=== PATIENT | male | born 1960 | race Caucasian/White ===

== ENCOUNTER → 2022-12-13 14:32 | Outpatient (CLI) | payer OTHER, SELFPAY ==
--- NOTE | 2022-12-13 14:34 | DI.RAD.S_ITS ---
PROCEDURE: XR KNEE RT 3V INDICATIONS: right knee pain TECHNIQUE: 3 views of the knee were acquired. COMPARISON: None. FINDINGS: Bones: No fractures or dislocations. Mild joint space narrowing at the medial compartment of the right knee. Small osteophytes. No suspicious bony lesions. Soft tissues: No significant joint effusion. No suspicious soft tissue calcifications. IMPRESSION: Mild right knee DJD. MRI could be considered for further evaluation Dictated by: David Bernal M.D. on 12/13/2022 at 16:13 Approved by: David Bernal M.D. on 12/13/2022 at 16:14
[2022-12-13 15:45] LABS: Hematocrit 40.8 % (41-53); Hemoglobin 13.6 g/dL (13.5-17.5); Mean Corpuscular HGB Conc 33.3 % (30-36); Mean Corpuscular Volume 93.2 fL (80-100); Platelet Count 249 X10^3/uL (150-400); Red Blood Cell Count 4.38 X10^6/uL (4.5-5.9); Red Cell Distribution Width 13.7 % (11.6-14.8); White Blood Cell Count 4.4 X10^3/uL (4.5-11.0)
[2022-12-13 15:51] LABS: Hemoglobin A1C% w Est Avg Glu 5.7 % (4.0-6.0)
[2022-12-13 16:07] LABS: Alanine Aminotransferase 100 IU/L (<50); Albumin 4.6 g/dL (3.5-5.0); Albumin Globulin Ratio 1.4 (1.0-2.8); Alkaline Phosphatase 67 U/L (38-126); Aspartate Aminotransferase 55 IU/L (17-59); BUN Creatinine Ratio 21.3 (6-22); Bilirubin Total 0.4 mg/dL (0.2-1.3); Blood Urea Nitrogen 19 mg/dL (9-20); Calcium 9.5 mg/dL (8.4-10.2); Carbon Dioxide 26 mmol/L (22-32); Chloride 104 mmol/L (98-107); Cholesterol 226 mg/dL (140-199); Estimated Glomerular Filt Rate > 60 mL/min (>60); Globulin 3.4 g/dL (1.7-4.1); Glucose 102 mg/dL (80-110); HDL Cholesterol 26 mg/dL (40-60); HEMOLYSIS < 15 (0-50); LDL Cholesterol Calculated 175 mg/dL (<100); Potassium 4.4 mmol/L (3.4-5.1); Sodium 141 mmol/L (137-145); Triglycerides 124 mg/dL (35-150)
[2022-12-13 16:34] LABS: TSH w/ Reflex to FT4 2.53 uIU/mL (0.47-4.68)
[2022-12-13 16:37] LABS: Prostate Specific Antigen 0.474 ng/mL (0.10-4.00)
[2022-12-17 11:36] LABS: Lamotrigine Lamictal 4.7 ug/mL (2.0-20.0)
== END ==
PROVIDERS: PCP Internal Medicine; Referring Provider Internal Medicine; Visit Provider Internal Medicine
DX: M17.11 Unilateral primary osteoarthritis, right knee (principal); M25.561 Pain in right knee; Z12.5 Encounter for screening for malignant neoplasm of prostate; E66.01 Morbid (severe) obesity due to excess calories; E78.2 Mixed hyperlipidemia; R73.01 Impaired fasting glucose; F31.81 Bipolar II disorder
CPT/HCPCS: 36415; 73562; 80053; 80061; 80175; 83036; 84153; 84443; 85027

== ENCOUNTER 2024-01-06 06:59 | Day surgery (SDC) | payer MEDICARE, OTHER, SELFPAY ==
--- NOTE | 2024-01-06 | PATH_ITS ---
[facility] Accession Number: [id number] No. of containers..02 Tissue . 01 Material submitted: . PART A: colon - DESCENDING POLYP PART B: colon - TRANSVERSE POLYP . 01 Diagnosis: A. DESCENDING COLON POLYP: Tubular adenoma. . B. TRANSVERSE COLON POLYP: Tubular adenoma. [facility] 01/13/2024 1149 Local . 01 Electronically signed: . Arik Ambrose MD, PhD, Pathologist NPI- [id number] . 01 Gross description: . Part A: DESCENDING POLYP: Received in formalin is 1 fragment(s) of liriano, soft tissue measuring 0.6 x 0.2 x 0.2 cm submitted entirely in 1 cassette(s) Part B: TRANSVERSE POLYP: Received in formalin is 1 fragment(s) of liriano, soft tissue measuring 0.6 x 0.4 x 0.4 cm submitted entirely in 1 cassette(s) /JAGUAR 01/08/2024 2048 Local . 01 Pathologist provided ICD-10: D12.4, D12.3 . 01 CPT . 174124, 611127 Specimen Comment: A courtesy copy of this report has been sent to [phone] Performed at: 01 [facility] [address] [place] [address], [place], [place] [id number] MD Idris Krishnan MD Phone: [phone]
[2024-01-06] MEDS: LACTATED RINGERS 1,000 ML 100 ML IV (07:26)
[2024-01-06 07:27] VITALS: BP 129/79; PULSE 93; RESP 16; TEMP 36.1; O2SAT 100
--- NOTE | 2024-01-06 07:42 | P.HP_ITS ---
History of Present Illness History of Present Illness Date Patient Seen: 01/06/24 Time Patient Seen: 07:42 Chief complaint: Colonoscopy Narrative: 63-year-old man personal history of colonic polyps here for screening colonoscopy. No acute abdominal concerns. No family history of intestinal malignancy. [facility] Medical History History of colonic polyps Obstructive sleep apnea Vision disorder Hearing loss Chronic back pain (~1999) Herpes (~1989) Tinnitus (~2019) Impaired fasting glucose Mixed hyperlipidemia Right knee pain Severe obesity (BMI 35.0-39.9) with comorbidity Chronic insomnia Bipolar 2 disorder (~1969) Surgical History Anesthesia History of right knee surgery (~2014) History of uvulectomy (~1995) Family History Mother History of bipolar disorder Mental health problem Sister History of bipolar disorder Mental health problem Obesity Social History details: , two sons, retired [employer], [place] Smoking Status: Never smoker alcohol intake: current Meds Home Medications and Allergies Home Medications Medication Instructions Recorded Confirmed Type eszopiclone 3 mg tablet (Lunesta) 3 mg PO DAILY Difficulty staying 10/28/23 01/06/24 Rx asleep #90 tabs lamotrigine 200 mg tablet 400 mg (2 x 200 mg) PO BID Bipolar 10/28/23 01/06/24 Rx (Lamictal) Disorder II #180 tabs rosuvastatin 10 mg tablet 10 mg PO DAILY #90 tabs 10/28/23 01/06/24 Rx Allergies Allergy/AdvReac Type Severity Reaction Status Date / Time No Known Drug Allergies Allergy Verified 01/06/24 07:35 Exam Vital Signs (past 8 hours): - 01/06/24 07:27 Temperature 96.9 F L Pulse Rate 93 H Respiratory Rate 16 Blood Pressure 129/79 Pulse Oximetry 100 Oxygen Delivery Method Room Air Oxygen Delivery Method Room Air Narrative Exam Narrative: General adult man alert oriented no acute distress Chest nonlabored respiration Extremities warm well perfused Assessment & Plan Assessment & Plan narrative: The patient requires colorectal screening and colonoscopy is recommended. Technical details were discussed. Risks, benefits, alternatives explained. Risks including but not limited to myocardial infarction, aspiration, bleeding, pain, missed lesion, incomplete examination, need for further radiographic studies, colonic perforation, and need for major abdominal surgery were discussed. All questions were answered to their satisfaction, and they are in agreement with this plan.
[2024-01-06 08:11] VITALS: BP 115/70; PULSE 70; RESP 15; TEMP 37.1; O2SAT 95
--- NOTE | 2024-01-06 08:14 | P.OP.COLON_ITS ---
Operative Date/Time/Diagnoses Date of procedure: 01/06/24 Time of procedure: 08:14 Pre-op diagnosis: Personal history of colonic polyps Procedure & Clinicians Study performed: Colonoscopy and polypectomy Same procedure as scheduled: Yes Indications: Colorectal screening Personal history of colonic polyps Surgeon: Juan Evans Procedure Notes Procedure in detail: The history and physical was performed/updated and the patient is ASA class is 3. The procedure was discussed in detail with the patient. Potential risks complications including infection, bleeding, missed diagnosis, perforation, need for surgery, and were explained. Their questions were answered and informed consent was obtained. Patient was brought to the procedure room and placed standard monitoring equipment. The patient's vital signs were monitored continuously throughout the entire procedure. Prior to starting time-out was performed. The patient was placed in the left lateral recumbent position. Procedural sedation was administered by anesthesia. Examination began with a thorough inspection of the perianal area there was no evidence of fissures, fistulae, external hemorrhoids or cutaneous malignancy. The colonoscopy scope was then placed into the anal canal and was advanced to the cecum, which was identified by the ileocecal valve, the appendiceal orifice and the confluence of the taenia. The scope was then slowly withdrawn examining colon thoroughly in all directions, irrigating it of any residual stool. The scope was retroflexed within the rectum The patient tolerated the procedure well. They will be discharged once criteria are met. The prep was of good/excellent quality. The withdrawl time was 7 minutes. FINDINGS * Descending colon 3 mm polyp removed with biopsy forceps * Transverse colon 5 mm polyp removed with cold snare Specimen(s): other (Descending and transverse colonic polyps) Impression: Colonic polyps x2 Post-procedure Plan for aftercare: Follow-up is dependent on pathology findings likely 5 years. Disposition: same day surgery
[2024-01-06 08:16] VITALS: BP 112/72; PULSE 71; RESP 15; TEMP 37.2; O2SAT 94
[2024-01-06 08:21] VITALS: PULSE 72; RESP 15; TEMP 37.1; O2SAT 95
[2024-01-06 08:22] VITALS: BP 111/68
[2024-01-06 08:32] VITALS: BP 115/70; PULSE 70; RESP 17; TEMP 36.9; O2SAT 95
== END 2024-01-06 08:36 | disposition home or self-care (01) ==
PROVIDERS: PCP Internal Medicine; Referring Provider Surgery; Visit Provider Surgery
PROC: 0DJD8ZZ Inspection of Lower Intestinal Tract, Via Natural or Artificial Opening Endoscopic (ICD-10-PCS; CPT 45378; principal; 2024-01-06 07:45)
DX: Z12.11 Encounter for screening for malignant neoplasm of colon (principal); Z86.010 Personal history of colon polyps; D12.4 Benign neoplasm of descending colon; D12.3 Benign neoplasm of transverse colon
CPT/HCPCS: 45385; 45380; J2704